=== PATIENT | female | born 1965 | race Caucasian/White ===

== ENCOUNTER 2016-11-30 10:54 | Emergency (ER) | payer BC ==
[2016-11-30] MEDS ORDERED: METOCLOPRAMIDE 10 MG/2 ML VIAL ONE ×2 (11:59→12:02)
[2016-11-30] MEDS ORDERED: DIPHENHYDRAMINE 50 MG/ML VIAL ONE ×2 (12:00→12:03)
[2016-11-30] MEDS ORDERED: SODIUM CHLORIDE 0.9% 1,000 ML ONE ×2 (12:00→12:03)
[2016-11-30] MEDS ORDERED: KETOROLAC 30 MG/ML VIAL ONE ×2 (12:00→12:03)
== END 2016-11-30 14:06 | disposition home or self-care (01) ==
LOC: ER 10:54
DX: G43.909 Migraine, unspecified, not intractable, without status migrainosus (principal); R19.7 Diarrhea, unspecified; F17.200 Nicotine dependence, unspecified, uncomplicated
CPT/HCPCS: 36415; 70450; 80053; 83690; 85025; 96361; 96374; 96375